=== PATIENT | male | born 1980 | race Caucasian/White ===

== ENCOUNTER 2024-06-15 21:47 | Emergency (ER) | payer SELFPAY ==
[~2024-06-15] VITALS: Ht 175.3 cm; Wt 73.0 kg
[2024-06-15 21:53] VITALS: O2SAT 96
[2024-06-15] MEDS: LEVETIRACETAM 500MG PREMIX 100 ML IV ONE (22:47)
[2024-06-15 22:56] LABS: BASOPHILS % 0.3 % (0.0-2.0); HEMATOCRIT. 40.7 % (42.0-52.0); HEMOGLOBIN. 13.9 g/dL (14.0-18.0); LYMPHOCYTES % 9.4 % (20.0-50.0); MEAN CORPUSCULAR HEMOGLOBIN 31.4 pg (28.0-32.0); MEAN CORPUSCULAR HGB CONC 34.2 g/dL (31.0-37.0); MEAN CORPUSCULAR VOLUME 91.8 fL (80.0-94.0); MEAN PLATELET VOLUME 7.6 fl (7.4-10.4); NEUTROPHILS % 85.3 % (40.0-76.0); PLATELET 291 x1000/uL (130-400); RED BLOOD CELL COUNT 4.44 mill/uL (4.7-6.1); RED CELL DISTRIBUTION WIDTH 13.9 % (11.6-14.6); WHITE BLOOD COUNT 10.8 x1000/uL (4.5-11.0)
[2024-06-15 23:02] LABS: CARBON DIOXIDE 26 mEq/L (21-32); CHLORIDE 108 mEq/L (98-107); POTASSIUM 3.2 mEq/L (3.5-5.1); SODIUM 141 mEq/L (136-145)
[2024-06-15 23:03] LABS: CALCIUM 9.2 mg/dL (8.7-10.4)
[2024-06-15 23:07] LABS: CREATININE 0.8 mg/dL (0.6-1.3)
[2024-06-15 23:08] LABS: GLUCOSE 152 mg/dL (70-105); UREA NITROGEN BLOOD 7 mg/dL (9-23)
[2024-06-15 23:09] LABS: ALANINE AMINOTRANSFERASE 11 IU/L (10-49); ASPARTATE AMINOTRANSFERASE 16 IU/L (<34)
[2024-06-15 23:10] LABS: ALBUMIN 4.5 g/dL (3.2-4.8); BILIRUBIN DIRECT 0.1 mg/dL (<=3.0); BILIRUBIN TOTAL 0.4 mg/dL (0.1-1.0); PROTEIN TOTAL 7.1 g/dL (6.0-8.3)
[2024-06-16] MEDS ORDERED: KEPP500 MT (00:59)
[2024-06-16 01:17] VITALS: BP 109/67; PULSE 91; RESP 16; TEMP 36.78072; O2SAT 99
[2024-06-16] MEDS: POTASSIUM CHLORIDE 20MEQ/PACKET PO ONE (01:17)
== END 2024-06-16 01:29 | disposition home or self-care (01) ==
LOC: ER 21:47
DX: G40.909 Epilepsy, unspecified, not intractable, without status epilepticus (principal); Z86.73 Personal history of transient ischemic attack (TIA), and cerebral infarction without residual deficits
CPT/HCPCS: 80076; 80048; 82962; 85025; 36415; 93005; 96365; 99284; J1953; Z7610 ×2